=== PATIENT | female | born 1985 | race Caucasian/White ===

== ENCOUNTER 2018-10-30 17:54 | Emergency (ER) | payer MEDICAID ==
[~2018-10-30] VITALS: Ht 160 cm; Wt 51.3 kg
[2018-10-30 18:00] VITALS: BP_SYST 109
--- NOTE | 2018-10-30 18:57 | NUR ---
1857 - Patient to ER bed 1 to gown for evaluation. Side rails up.
--- NOTE | 2018-10-30 19:05 | NUR ---
1905 - ER TITO Keys at bedside examining patient.
--- NOTE | 2018-10-30 19:10 | NUR ---
Recieved report from Selin NORMAN for continuation of care. Patient observed in bed with daughter and boyfriend present. A/O x 4 with c/o eye abbrasion. +Light sensitivity +Blurred vision. -Discharge. Visual acuity to be obtained.
[2018-10-30] MEDS ORDERED: HYDROcodone/ACETAMIN 7.5-325 MG TAB PO ONE (19:15)
--- NOTE | 2018-10-30 19:18 | NUR ---
1917 - Attempted to assess visual acuity. Pt refused to perform test w/ both eyes or right eye. Left eye visual acuity performed and documented. TITO Keys notified.
[2018-10-30] MEDS ORDERED: NACL 0.9% 1,000 ML IV ONE (19:45)
[2018-10-30] MEDS ORDERED: KETOROLAC TROMETHAMINE 30 MG VIAL IVP ONE (19:45)
[2018-10-30] MEDS ORDERED: ONDANSETRON HCL 4 MG/2 ML VIAL IVP ONE (19:45)
--- NOTE | 2018-10-30 20:33 | NUR ---
Eye irrigated. Patient tolerated well.
[2018-10-30 20:40] VITALS: BP_SYST 119
--- NOTE | 2018-10-30 20:40 | NUR ---
Patient given written and verbal discharge instructions and verbalizes understanding. ER MD discussed with patient the results and treatment provided. Patient in stable condition. ID arm band removed. IV catheter removed intact and dressing applied, no active bleeding. Rx of erythromycin, norco and ibuprofen given. Patient educated on pain management and to follow up with PMD. Pain Scale 3/10 tolerable for patient. Opportunity for questions provided and answered. Medication side effect fact sheet provided.
== END 2018-10-30 20:40 | disposition home or self-care (01) ==
LOC: SED 17:54
DX: S05.01XA Injury of conjunctiva and corneal abrasion without foreign body, right eye, initial encounter (principal); X58.XXXA Exposure to other specified factors, initial encounter; Y93.89 Activity, other specified; Y92.89 Other specified places as the place of occurrence of the external cause; Y99.8 Other external cause status
CPT/HCPCS: 81025; 96374; 96375; 99283; J1885; J2405; J7030

== ENCOUNTER 2019-04-22 14:42 | Emergency (ER) | payer MEDICAID ==
[~2019-04-22] VITALS: Ht 160 cm; Wt 49.9 kg
[2019-04-22 14:56] VITALS: BP_SYST 127
--- NOTE | 2019-04-22 15:00 | NUR ---
Patient triaged and placed in waiting room. VSS and patient appears in no acute distress at this time. Accompanied by mother, awaiting available bed, and MD notified of need for MSE.
--- NOTE | 2019-04-22 15:18 | NUR ---
ER TITO Soto examining patient.
--- NOTE | 2019-04-22 15:18 | NUR ---
Pt placed in chair
[2019-04-22] MEDS ORDERED: KETOROLAC TROMETHAMINE 60 MG/2 ML VIAL IM ONE (15:30)
--- NOTE | 2019-04-22 15:32 | NUR ---
Patient brought in complaining of left knee pain since yesterday. Patient reports that she was walking on street yesterday noticed pain and swelling. Pain 4/10. Patient has history of EDS. No other complaints/injuries per patient or as noted. Will continue to monitor.
--- NOTE | 2019-04-22 16:21 | NUR ---
Patient refuses Toradol at this time. Patient states that she's had Toradol in the past and it doesn't help. She stated " I told the RADIO ARTIST I wanted something stronger than Toradol." Patient reports that she is driving home. She is now requesting to speak to the MD. Dr. Carrasco notified.
[2019-04-22] MEDS ORDERED: HYDROcodone/ACETAMIN 7.5-325 MG TAB PO ONE (16:30)
[2019-04-22] MEDS ORDERED: ONDANSETRON 4 MG ODT TAB PO ONE (16:30)
--- NOTE | 2019-04-22 16:40 | NUR ---
ER Dr. Carrasco at bedside examining patient and answering patient's questions.
--- NOTE | 2019-04-22 16:41 | NUR ---
Note teritj in EDM - 04/22/19 at 1647 by [email or web address] Patient brought in complaining of left knee pain since yesterday. Patient reports that she was walking on street yesterday noticed pain and swelling. Pain 4/10. Patient has history of EDS. No other complaints/injuries per patient or as noted. Will continue to monitor.
[2019-04-22 16:49] VITALS: BP_SYST 118
--- NOTE | 2019-04-22 16:49 | NUR ---
Patient given written and verbal discharge instructions and verbalizes understanding. ER ORTHOPEDIC PHYSICIAN Massimo discussed with patient the results and treatment provided. Patient in stable condition. ID arm band removed. Rx of Tylenol and voltaren given. Patient educated on pain management and to follow up with PMD. Pain Scale 0/10 Opportunity for questions provided and answered. Medication side effect fact sheet provided.
== END 2019-04-22 16:48 | disposition home or self-care (01) ==
LOC: SED 14:42
DX: M25.562 Pain in left knee (principal); R03.0 Elevated blood-pressure reading, without diagnosis of hypertension; Q79.60 Ehlers-Danlos syndrome, unspecified; Z88.6 Allergy status to analgesic agent
CPT/HCPCS: 29505; 73564; 81025; 99283; J1885; Q0162

== ENCOUNTER 2019-11-16 20:22 | Emergency (ER) | payer MEDICAID ==
[~2019-11-16] VITALS: Ht 160 cm; Wt 47.6 kg
[2019-11-16 20:30] VITALS: BP_SYST 99
--- NOTE | 2019-11-16 20:30 | NUR ---
Patient to ER bed 8 to gown for evaluation. Side rails up. Report given to shaheed.
--- NOTE | 2019-11-16 21:00 | NUR ---
Pt BIB family to ED C/O pain between shoulder blades, and pain completely moving from lower legs to upper legs. No other injuries and or complaints noted VSS no s/s of acute distress Resting on gurney with rails up
[2019-11-16 21:11] LABS: BILIRUBIN,URINE NEGATIVE (NEGATIVE); BLOOD, URINE 1+ (NEGATIVE); COLOR,URINE YELLOW (YELLOW); GLUCOSE,URINE NEGATIVE (NEGATIVE); KETONES,URINE 1+ (NEGATIVE); LEUKOCYTE ESTERASE ,URINE NEGATIVE (NEGATIVE); NITRITE, URINE NEGATIVE (NEGATIVE); PROTEIN URINE NEGATIVE (NEGATIVE); UROBILINOGEN,URINE 0.2 (0.2-1.0)
[2019-11-16 21:16] LABS: CLARITY/URINE HAZY (CLEAR)
--- NOTE | 2019-11-16 21:55 | NUR ---
ER at bedside examining patient.
--- NOTE | 2019-11-16 22:03 | NUR ---
Dr. Núñez bedside for pt eval
[2019-11-16 22:16] LABS: BASOPHILS % (AUTO) 0.3 % (0.0-2.0); EOSINOPHILS % (AUTO) 0.1 % (0.0-4.0); HEMATOCRIT 41.1 % (36-48); HEMOGLOBIN 13.9 g/dL (12.0-16.0); LYMPHOCYTES # (AUTO) 1.2 K/uL (1.0-5.5); LYMPHOCYTES % (AUTO) 19.8 % (20.5-51.5); MEAN CORPUSCULAR HEMOGLOBIN 31 pg (27-31); MEAN CORPUSCULAR HGB CONC 34 % (32-36); MEAN CORPUSCULAR VOLUME 90 fL (79.0-98.0); MONOCYTES # (AUTO) 0.3 K/uL (0.0-1.0); NEUTROPHILS # (AUTO) 4.7 K/uL (1.8-7.7); NEUTROPHILS % (AUTO) 74.8 % (40.0-70.0); PLATELET COUNT (AUTO) 228 K/uL (130-430); RED BLOOD CELL COUNT(AUTO) 4.54 MIL/uL (4.2-6.2); RED CELL DISTRIBUTION WIDTH 13.8 % (9.0-15.0); WHITE BLOOD COUNT (AUTO) 6.2 K/uL (4.8-10.8)
[2019-11-16 22:23] LABS: CALCIUM 9.2 mg/dL (8.4-11.0); CREATININE 0.96 mg/dL (0.55-1.30); POTASSIUM 3.2 mmol/L (3.5-5.1)
[2019-11-16 22:27] LABS: INR 1.1 (0.8-1.2); PROTHROMBIN TIME 10.7 SECS (9.5-12.5)
[2019-11-16 22:29] LABS: ALBUMIN 4.4 g/dL (3.4-4.8); TOTAL BILIRUBIN 0.6 mg/dL (0.0-1.0)
[2019-11-16] MEDS ORDERED: MORPHINE 4 MG/ML INJ. SYRINGE IVP ONE (22:45)
--- NOTE | 2019-11-16 23:15 | NUR ---
VSS no s/s of acute distress Resting on gurney rails up
[2019-11-16 23:35] LABS: BACTERIA,URINE MODERATE /HPF (None Seen); MUCUS,URINE 2+ /LPF (None Seen); RBC,URINE 0-3 /HPF (0-3)
[2019-11-17] MEDS ORDERED: IOHEXOL 350 mgI/mL, 150 ML INFUS..BTL IV ONE (00:09)
--- NOTE | 2019-11-17 00:30 | NUR ---
Dr. Núñez bedside to update pt on her status
--- NOTE | 2019-11-17 01:31 | NUR ---
Pt states "feeling a little better." CT Scan was well tolerated
[2019-11-17 02:30] VITALS: BP_SYST 102
--- NOTE | 2019-11-17 02:30 | NUR ---
Patient given written and verbal discharge instructions and verbalizes understanding. ER MD discussed with patient the results and treatment provided. Patient in stable condition. ID arm band removed. IV catheter removed intact and dressing applied, no active bleeding. Patient educated on pain management and to follow up with PMD. Pain Scale 0/10 Opportunity for questions provided and answered.
== END 2019-11-17 02:30 | disposition home or self-care (01) ==
LOC: SED 20:22
DX: M54.9 Dorsalgia, unspecified (principal); R07.89 Other chest pain; Z88.6 Allergy status to analgesic agent
CPT/HCPCS: 36415; 71045; 71275; 80053; 81000; 81025; 82550; 83880; 84484; 85025; 85379; 85610; 85730; 87086; 93005 ×2; 96374; 99285; J2270; Q9967

== ENCOUNTER 2019-12-04 12:49 | Emergency (ER) | payer MEDICAID, SELFPAY ==
[~2019-12-04] VITALS: Ht 160 cm; Wt 45.4 kg
[2019-12-04 13:51] VITALS: BP_SYST 117
--- NOTE | 2019-12-04 17:15 | NUR ---
Patient to ER bed 03 to gown for evaluation. Side rails up.
--- NOTE | 2019-12-04 17:20 | NUR ---
Pt walked in to ER with c/o abd pain and diarrhea x3 days. Pt reports she's been to multiple ER's and they've referred her to GI but her appts are getting cancelled due to Covid. V/S stable, pt is afebrile. Currently resting in bed, will continue to monitor.
--- NOTE | 2019-12-04 17:21 | NUR ---
ER at bedside examining patient.
--- NOTE | 2019-12-04 17:45 | NUR ---
Patient given written and verbal discharge instructions and verbalizes understanding. ER MD discussed with patient the results and treatment provided. Patient in stable condition. ID arm band removed. No prescriptions given. Patient educated on pain management and to follow up with PMD. Pain Scale 3. Opportunity for questions provided and answered. Medication side effect fact sheet provided.
[2019-12-04 17:48] VITALS: BP_SYST 117
== END 2019-12-04 17:45 | disposition home or self-care (01) ==
LOC: SED 12:49
DX: S29.012A Strain of muscle and tendon of back wall of thorax, initial encounter (principal); I80.9 Phlebitis and thrombophlebitis of unspecified site; Z88.6 Allergy status to analgesic agent; Z88.8 Allergy status to other drugs, medicaments and biological substances
CPT/HCPCS: 93005; 93971; 99284

== ENCOUNTER 2020-05-03 18:01 | Emergency (ER) | payer MEDICAID, SELFPAY ==
[~2020-05-03] VITALS: Ht 160 cm; Wt 49.9 kg
[2020-05-03 18:02] VITALS: BP_SYST 109
--- NOTE | 2020-05-03 18:02 | NUR ---
PLACED IN TRIAGE TENT AND EKG WAS DONE. TRIAGED AND WAITING IN ER TENT FOR AVAILABLE ER BED
[2020-05-03 18:45] LABS: BASOPHILS % (AUTO) 0.3 % (0.0-2.0); EOSINOPHILS % (AUTO) 0.2 % (0.0-4.0); HEMATOCRIT 36.8 % (36-48); HEMOGLOBIN 12.1 g/dL (12.0-16.0); LYMPHOCYTES # (AUTO) 1.5 K/uL (1.0-5.5); MEAN CORPUSCULAR HEMOGLOBIN 28 pg (27-31); MEAN CORPUSCULAR HGB CONC 33 % (32-36); MEAN CORPUSCULAR VOLUME 87 fL (79.0-98.0); MONOCYTES # (AUTO) 0.3 K/uL (0.0-1.0); MONOCYTES % (AUTO) 4.4 % (1.7-9.3); NEUTROPHILS # (AUTO) 5.6 K/uL (1.8-7.7); NEUTROPHILS % (AUTO) 75.1 % (40.0-70.0); PLATELET COUNT (AUTO) 245 K/uL (130-430); RED BLOOD CELL COUNT(AUTO) 4.25 MIL/uL (4.2-6.2); RED CELL DISTRIBUTION WIDTH 15.4 % (9.0-15.0); WHITE BLOOD COUNT (AUTO) 7.5 K/uL (4.8-10.8)
--- NOTE | 2020-05-03 18:48 | NUR ---
DR PARADA OUTSIDE TO EVALUATE PT.
[2020-05-03 19:00] LABS: ANION GAP 8 (5-15); CALCIUM 8.6 mg/dL (8.4-11.0); CHLORIDE 104 mmol/L (98-107); CREATININE 0.72 mg/dL (0.55-1.30); GLUCOSE 102 mg/dL (70-99); POTASSIUM 3.5 mmol/L (3.5-5.1); SODIUM SERUM 139 mmol/L (136-145); UREA NITROGEN, BLOOD 10 mg/dL (8-21)
--- NOTE | 2020-05-03 19:00 | NUR ---
Patient came from home for evaluation of sudden onset sharp chest pain which she has had before. Patient denies, sob, but is complaining of diarrhea.
[2020-05-03 19:07] LABS: GFR AFRICAN AMERICAN 119 mL/min (>90)
[2020-05-03 19:13] LABS: ALANINE AMINOTRANSFERASE 26 U/L (12-78); ALBUMIN 3.9 g/dL (3.4-4.8); ASPARTATE AMINOTRANSFERASE 21 U/L (10-37); BILIRUBIN,DIRECT 0.1 mg/dL (0.0-0.3); HCG,QUANTITATIVE 0 mIU/ML (0-6); LIPASE 145 U/L (73-393); TOTAL BILIRUBIN 0.3 mg/dL (0.0-1.0)
[2020-05-03 20:12] VITALS: BP_SYST 112
--- NOTE | 2020-05-03 20:12 | NUR ---
Patient given written and verbal discharge instructions and verbalizes understanding. ER MD discussed with patient the results and treatment provided. Patient in stable condition. ID arm band removed. Patient educated on pain management and to follow up with PMD. Pain Scale 5/10. Opportunity for questions provided and answered. Medication side effect fact sheet provided.
== END 2020-05-03 20:12 | disposition home or self-care (01) ==
LOC: SED 18:01
DX: R07.89 Other chest pain (principal); R00.2 Palpitations; Z88.2 Allergy status to sulfonamides; Z88.8 Allergy status to other drugs, medicaments and biological substances
CPT/HCPCS: 36415; 71045; 80048; 80076; 83690-TC; 83880; 84484; 84702-TC; 85025; 93005; 99285

== ENCOUNTER 2021-06-04 08:50 | Emergency (ER) | payer MEDICAID, SELFPAY ==
[~2021-06-04] VITALS: Ht 160 cm; Wt 54.4 kg
[2021-06-04 09:20] VITALS: BP_SYST 99
--- NOTE | 2021-06-04 09:20 | NUR ---
Patient triaged and placed in waiting room. VSS and patient appears in no acute distress at this time. Accompanied by SELF, awaiting available bed, and MD notified of need for MSE.
--- NOTE | 2021-06-04 09:25 | NUR ---
PT PRESENTS TO ED C/O GROWTH IN THROAT.PT SEEN IN [facility] AND ADVISED TO SEEK FURTHER EVALUATION FOR INCREASE SIZE OF GROWTH IN THROAT.PT DENIES PAIN OR DIFFICULTY SWALLOWING.
--- NOTE | 2021-06-04 14:30 | NUR ---
ER examining patient in triage room.
[2021-06-04 16:17] LABS: BASOPHILS % (AUTO) 0.4 % (0.0-2.0); EOSINOPHILS % (AUTO) 0.3 % (0.0-4.0); HEMATOCRIT 36.3 % (36-48); HEMOGLOBIN 11.9 g/dL (12.0-16.0); LYMPHOCYTES # (AUTO) 1.3 K/uL (1.0-5.5); LYMPHOCYTES % (AUTO) 30.8 % (20.5-51.5); MEAN CORPUSCULAR HEMOGLOBIN 27 pg (27-31); MEAN CORPUSCULAR HGB CONC 33 % (32-36); MEAN CORPUSCULAR VOLUME 84 fL (79.0-98.0); MONOCYTES # (AUTO) 0.3 K/uL (0.0-1.0); MONOCYTES % (AUTO) 6.1 % (1.7-9.3); NEUTROPHILS # (AUTO) 2.6 K/uL (1.8-7.7); NEUTROPHILS % (AUTO) 62.4 % (40.0-70.0); PLATELET COUNT (AUTO) 275 K/uL (130-430); RED BLOOD CELL COUNT(AUTO) 4.35 MIL/uL (4.2-6.2); RED CELL DISTRIBUTION WIDTH 17.2 % (9.0-15.0); WHITE BLOOD COUNT (AUTO) 4.2 K/uL (4.8-10.8)
[2021-06-04 16:26] LABS: ANION GAP 10 (5-15); CALCIUM 8.9 mg/dL (8.4-11.0); CHLORIDE 102 mmol/L (98-107); CREATININE 0.59 mg/dL (0.55-1.30); GLUCOSE 87 mg/dL (70-99); POTASSIUM 3.9 mmol/L (3.5-5.1); SODIUM SERUM 138 mmol/L (136-145); UREA NITROGEN, BLOOD 11 mg/dL (8-21)
[2021-06-04 16:29] LABS: GFR AFRICAN AMERICAN 148 mL/min (>90)
[2021-06-04 16:41] LABS: ALANINE AMINOTRANSFERASE 19 U/L (12-78); ALBUMIN 4.2 g/dL (3.4-4.8); ASPARTATE AMINOTRANSFERASE 16 U/L (10-37); FREE T4 (FREE THYROXINE) 1.4 ng/dl (0.8-1.5); THYROID STIMULATING HORMONE 0.88 uIu/mL (0.36-3.74); TOTAL BILIRUBIN 0.7 mg/dL (0.0-1.0)
[2021-06-04 17:18] LABS: C-REACTIVE PROTEIN QUANT < 0.2 mg/dL (0-0.5)
--- NOTE | 2021-06-04 20:17 | NUR ---
Patient given written and verbal discharge instructions and verbalizes understanding. ER MD discussed with patient the results and treatment provided. Patient in stable condition. ID arm band removed. No Rx of given. Patient educated on pain management and to follow up with PMD. Pain Scale 0/10. Opportunity for questions provided and answered. Medication side effect fact sheet provided.
[2021-06-04 20:18] VITALS: BP_SYST 101
== END 2021-06-04 20:18 | disposition home or self-care (01) ==
LOC: SED 08:50
DX: E04.1 Nontoxic single thyroid nodule (principal); Z88.6 Allergy status to analgesic agent; Z91.041 Radiographic dye allergy status; Z88.1 Allergy status to other antibiotic agents
CPT/HCPCS: 36415; 70490; 76376; 76536-TC; 80053; 84439; 84443; 84703; 85025; 86140; 93880; 99284; 99285